=== PATIENT | male | born 1995 | race Caucasian/White ===

== ENCOUNTER 2024-07-10 22:29 | Outpatient (REF) | payer OTHER, SELFPAY ==
[2024-07-14 12:19] LABS: HSV Type 1 Ab, IgG Positive (Negative); HSV Type 2 Ab, IgG Negative (Negative)
[2024-07-14 15:35] LABS: Mycoplasma genitalium Result Negative (Negative); Specimen Source URINE
== END 2024-07-10 22:30 | disposition home or self-care (01) ==
LOC: LBN 22:29
PROVIDERS: Visit Provider Physician Assistant
DX: R30.0 Dysuria (principal)
CPT/HCPCS: 87563; 86695; 86696